=== PATIENT | female | born 1950 | race Caucasian/White ===

== ENCOUNTER 2017-03-18 13:32 | Inpatient (IN) | payer MEDICARE, BC ==
[2017-03-18] MEDS ORDERED: Sodium Chloride 0.9% 10 ML Syringe FLUSH PRN (15:34)
[2017-03-18] MEDS ORDERED: Ketorolac 30 MG/ML SDV IVPUSH ONE (15:34)
[2017-03-18] MEDS ORDERED: Sodium Chloride 0.9% 1,000 ML IV ONE ×2 (15:34→18:33)
[2017-03-18] MEDS ORDERED: Oseltamivir 75 MG Cap PO ONE (16:14)
[2017-03-18] MEDS ORDERED: Albuterol 0.083% 2.5 MG/3 ML Neb Soln NEB ONE (16:24)
[2017-03-18] MEDS ORDERED: Codeine/Promethazine 10-6.25 MG/5 ML Syrup 5 ML UD Cup PO STA (16:24)
--- NOTE | 2017-03-18 16:31 | EDM.PDOC ---
ED HPI GENERAL MEDICAL PROBLEM - General Chief Complaint: General Stated Complaint: SICK/NOT EATING Time Seen by Provider: 03/18/17 14:28 Source of Information: Reports: Patient History Limitations: Reports: No Limitations - History of Present Illness INITIAL COMMENTS - FREE TEXT/NARRATIVE: 67-year-old female presents for evaluation treatment of cough, chills, decreased appetite, headaches, body aches, fatigue and malaise. Reports that she has not been feeling well since Saturday. Started coughing on Saturday. It is a nonproductive cough but does have a wet sound to it. She questions that she has had any fevers. She's not taken her temperature. No abdominal pain, nausea, vomiting, diarrhea or sore throat. No urinary symptoms. Last bowel movement was Saturday. Patient did have a flu shot this season. 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 She sees a web interface developer in [place]. Duration: Day(s): (2) Headache Pain Score (Numeric/FACES): 4 - Related Data Allergies Allergy/AdvReac Type Severity Reaction Status Date / Time ragweed pollen Allergy Cough Verified 03/18/17 23:52 Home Meds: Home Meds atorvaSTATin [Lipitor] 40 mg PO BEDTIME 12/08/13 [History] guaiFENesin [Mucinex] 600 mg PO BID 12/08/13 [History] Esomeprazole Magnesium [Nexium 24Hr] 1 tab PO DAILY 03/18/17 [History] Sertraline [Zoloft] 50 mg PO DAILY 03/18/17 [History] Past Medical History - Past Surgical History HEENT Surgical History: Reports: Other (See Below) Other HEENT Surgeries/Procedures: numerous sinus surgeries;bronchoscopy Social & Family History - Tobacco Use Smoking Status *Q: Never Smoker - Caffeine Use Caffeine Use: Reports: Coffee - Alcohol Use Days Per Week of Alcohol Use: 0 - Recreational Drug Use Recreational Drug Use: No ED ROS GENERAL - Review of Systems Review Of Systems: See Below Constitutional: Reports: Chills, Malaise, Weakness, Fatigue, Decreased Appetite HEENT: Denies: Ear Pain, Throat Pain Respiratory: Reports: Cough GI/Abdominal: Denies: Abdominal Pain, Diarrhea, Nausea, Vomiting ED EXAM, GENERAL - Physical Exam Exam: See Below Exam Limited By: No Limitations General Appearance: Alert, WD/WN, Moderate Distress Ears: Normal External Exam Nose: Normal Inspection Throat/Mouth: Normal Inspection, Normal Lips, Normal Oropharynx, Normal Voice, No Airway Compromise Respiratory/Chest: No Respiratory Distress, Lungs Clear, Normal Breath Sounds Cardiovascular: Normal Peripheral Pulses, Regular Rate, Rhythm, No Murmur Neurological: Alert, Oriented, Normal Cognition Psychiatric: Normal Affect, Normal Mood Skin Exam: Warm, Dry, Normal Color Course - Vital Signs Last Recorded V/S: Last Vital Signs Temp 37.2 C 03/18/17 14:31 Pulse 98 03/18/17 14:31 Resp 20 03/18/17 14:31 BP 108/71 03/18/17 14:31 Pulse Ox 92 L 03/18/17 16:24 - Orders/Labs/Meds Orders: Active Orders 24 hr Category Date Time Status Admission Status [Patient Status] [ADT] Routine ADT 03/18/17 21:06 Active Oxygen Therapy [RC] ASDIRECTED Care 03/18/17 18:34 Active Peripheral IV Care [RC] Q2H Care 03/18/17 15:36 Active Chest 1V Frontal [CR] Stat Exams 03/18/17 15:34 Taken Sodium Chloride 0.9% [Normal Saline] 1,000 ml Med 03/18/17 18:33 Active IV ONETIME Sodium Chloride 0.9% [Saline Flush] Med 03/18/17 15:34 Active 10 ml FLUSH ASDIRECTED PRN Peripheral IV Insertion Adult [OM.PC] Routine Oth 03/18/17 15:34 Ordered Medication Orders Albuterol/Ipratropium (Duoneb 3.0-0.5 Mg/3 Ml) 3 ml NEB QIDRT DON Enoxaparin Sodium (Lovenox) 40 mg SUBCUT DAILY DON Hydralazine HCl (Apresoline) 20 mg IVPUSH Q6H PRN PRN Reason: Hypertension Sodium Chloride (Normal Saline) 1,000 mls @ 100 mls/hr IV ONETIME ONE Stop: 03/19/17 04:32 Last Admin: 03/18/17 18:37 Dose: 100 mls/hr Levofloxacin/Dextrose 750 mg/ (Premix) 150 mls @ 100 mls/hr IV ONETIME ONE Stop: 03/19/17 00:29 Last Admin: 03/18/17 23:37 Dose: 100 mls/hr Sodium Chloride (Normal Saline) 1,000 mls @ 70 mls/hr IV ASDIRECTED DON Oseltamivir Phosphate (Tamiflu) 75 mg PO BID DON Sodium Chloride (Saline Flush) 10 ml FLUSH ASDIRECTED PRN PRN Reason: Keep Vein Open Last Admin: 03/18/17 15:43 Dose: 10 ml Temazepam (Restoril) 7.5 mg PO BEDTIME PRN PRN Reason: Sleep Last Admin: 03/18/17 23:48 Dose: 7.5 mg Labs: Laboratory Tests 03/18/17 03/18/17 Range/Units 15:10 15:10 WBC 6.04 (3.98-10.04) K/mm3 RBC 5.02 (3.98-5.22) M/mm3 Hgb 13.7 (11.2-15.7) gm/L Hct 41.9 (34.1-44.9) % MCV 83.5 (79.4-94.8) fl MCH 27.3 (25.6-32.2) pg MCHC 32.7 (32.2-35.5) g/dl RDW Std Deviation 43.5 (36.4-46.3) fL Plt Count 264 (182-369) K/mm3 MPV 10.3 (9.4-12.3) fl Neutrophils % (Manual) 80 H (40-60) % Band Neutrophils % 0 (0-10) % Lymphocytes % (Manual) 7 L (20-40) % Atypical Lymphs % 0 % Monocytes % (Manual) 13 H (2-10) % Eosinophils % (Manual) 0 L (0.7-5.8) % Basophils % (Manual) 0 L (0.1-1.2) Platelet Estimate Adequate Plt Morphology Comment Normal RBC Morph Comment Normal Sodium 136 (136-145) mEq/L Potassium 3.7 (3.5-5.1) mEq/L Chloride 98 (98-107) mEq/L Carbon Dioxide 28 (21-32) mEq/L Anion Gap 13.7 (5-15) BUN 21 H (7-18) mg/dL Creatinine 1.0 (0.55-1.02) mg/dL Est Cr Clr Drug Dosing 43.92 mL/min Estimated GFR (MDRD) 55 (>60) mL/min BUN/Creatinine Ratio 21.0 H (14-18) Glucose 116 H (80-115) mg/dL Calcium 8.9 (8.5-10.1) mg/dL Total Bilirubin 0.4 (0.2-1.0) mg/dL AST 35 (15-37) U/L ALT 51 (14-59) U/L Alkaline Phosphatase 74 (46-116) U/L C-Reactive Protein 5.0 H* (<1.0) mg/dL Total Protein 7.8 (6.4-8.2) g/dl Albumin 3.6 (3.4-5.0) g/dl Globulin 4.2 gm/dL Albumin/Globulin Ratio 0.9 L (1-2) Meds: Medications Generic Name Dose Route Start Last Admin Trade Name Freq PRN Reason Stop Dose Admin Albuterol/Ipratropium 3 ml 03/19/17 06:00 Duoneb 3.0-0.5 Mg/3 Ml NEB QIDRT DON Enoxaparin Sodium 40 mg 03/19/17 09:00 Lovenox SUBCUT DAILY [facility] Hydralazine HCl 20 mg 03/18/17 22:54 Apresoline IVPUSH Q6H PRN Hypertension Sodium Chloride 1,000 mls @ 100 mls/hr 03/18/17 18:33 03/18/17 18:37 Normal Saline IV 03/19/17 04:32 100 mls/hr ONETIME ONE Administration Levofloxacin/Dextrose 750 mg/ 150 mls @ 100 mls/hr 03/18/17 23:00 03/18/17 23 :37 Premix IV 03/19/17 00:29 100 mls/hr ONETIME ONE Administration Sodium Chloride 1,000 mls @ 70 mls/hr 03/18/17 22:45 Normal Saline IV ASDIRECTED DON Oseltamivir Phosphate 75 mg 03/19/17 09:00 Tamiflu PO BID DON Sodium Chloride 10 ml 03/18/17 15:34 03/18/17 15:43 Saline Flush FLUSH 10 ml ASDIRECTED PRN Administration Keep Vein Open Temazepam 7.5 mg 03/18/17 22:50 03/18/17 23:48 Restoril PO 7.5 mg BEDTIME PRN Administration Sleep Discontinued Medications Generic Name Dose Route Start Last Admin Trade Name Freq PRN Reason Stop Dose Admin Albuterol 2.5 mg 03/18/17 16:24 03/18/17 16:57 Proventil Neb Soln NEB 03/18/17 16:25 2.5 mg ONETIME ONE Administration Sodium Chloride 1,000 mls @ 999 mls/hr 03/18/17 15:34 03/18/17 15:41 Normal Saline IV 03/18/17 16:34 999 mls/hr ONETIME ONE Administration Ketorolac Tromethamine 30 mg 03/18/17 15:34 03/18/17 15:41 Toradol IVPUSH 03/18/17 15:35 30 mg ONETIME ONE Administration Oseltamivir Phosphate 75 mg 03/18/17 16:14 03/18/17 16:31 Tamiflu PO 03/18/17 16:15 75 mg ONETIME ONE Administration Promethazine HCl/Codeine 5 ml 03/18/17 16:24 03/18/17 16:31 Phenergan With Codeine PO 03/18/17 16:25 5 ml NOW STA Administration - Radiology Interpretation Free Text/Narrative:: Chest: Frontal view of the chest was obtained. Comparison: Prior chest x-ray of 12/08/13. Heart size and mediastinum are normal. Lungs are clear. Bony structures show old no discrete abnormality. Impression: 1. Nothing acute is appreciated on frontal chest x-ray. - Re-Assessments/Exams Free Text/Narrative Re-Assessment/Exam: 03/18/17 16:43 Influenza return positive for type A. I feel that she needs to be admitted to the hospital given her history of bronchial and tracheal malacia. Will discuss with Dr. Schmitt and plan on admission. 03/18/17 20:14 Nursing staff informed me that her oxygen sats have been in the upper 80s to low 90s on room air. She has been placed on supplemental oxygen. Case discussed with Dr. Schmitt, hospitalist on-call. She will come and see the patient in the ER. Plan on admission. 03/18/17 22:01 Dr. Schmitt has seen the patient in the ER. She'll be admitted to the floor. Departure - Departure Time of Disposition: 22:00 Disposition: Admitted As Inpatient 64 Condition: Poor Clinical Impression: Influenza A, Hypoxia - Discharge Information - My Orders Last 24 Hours: My Active Orders 03/18/17 15:34 Chest 1V Frontal [CR] Stat Sodium Chloride 0.9% [Saline Flush] 10 ml FLUSH ASDIRECTED PRN Peripheral IV Insertion Adult [OM.PC] Routine 03/18/17 15:36 Peripheral IV Care [RC] Q2H 03/18/17 18:33 Sodium Chloride 0.9% [Normal Saline] 1,000 ml IV ONETIME 03/18/17 18:34 Oxygen Therapy [RC] ASDIRECTED 03/18/17 21:06 Admission Status [Patient Status] [ADT] Routine - Assessment/Plan Last 24 Hours: My Active Orders 03/18/17 15:34 Chest 1V Frontal [CR] Stat Sodium Chloride 0.9% [Saline Flush] 10 ml FLUSH ASDIRECTED PRN Peripheral IV Insertion Adult [OM.PC] Routine 03/18/17 15:36 Peripheral IV Care [RC] Q2H 03/18/17 18:33 Sodium Chloride 0.9% [Normal Saline] 1,000 ml IV ONETIME 03/18/17 18:34 Oxygen Therapy [RC] ASDIRECTED 03/18/17 21:06 Admission Status [Patient Status] [ADT] Routine
[2017-03-18] MEDS ORDERED: hydrALAZINE 20 MG/ML SDV IVPUSH PRN (22:54)
[2017-03-18] MEDS ORDERED: Levofloxacin/Dextrose 5%-Water 750 MG in Premix Bag 1 BAG IV ONE (23:00)
[2017-03-18] MEDS: Temazepam 7.5 MG Cap PO PRN (23:48)
[2017-03-19] MEDS ORDERED: Acetaminophen 325 MG Tab PO PRN (01:59)
[2017-03-19] MEDS ORDERED: Magnesium Hydroxide 400 MG/5 ML Susp 30 ML Cup PO ONE (04:21)
[2017-03-19] MEDS: Sodium Chloride 0.9% 1,000 ML IV SCH ×2 (06:11→21:05)
[2017-03-19] MEDS: Albuterol/Ipratropium 3.0-0.5 MG/3 ML Neb Soln NEB SCH ×4 (06:19→21:30)
--- NOTE | 2017-03-19 08:01 | CR ---
Chest: Frontal view of the chest was obtained. Comparison: Prior chest x-ray of 12/08/13. Heart size and mediastinum are normal. Lungs are clear. Bony structures show no discrete abnormality. Impression: 1. Nothing acute is appreciated on frontal chest x-ray. Diagnostic code #1
[2017-03-19] MEDS: Oseltamivir 30 MG Cap PO SCH ×2 (08:49→21:01)
[2017-03-19] MEDS: Enoxaparin 40 MG/0.4 ML Syringe SUBCUT SCH (08:50)
--- NOTE | 2017-03-19 09:26 | PCM.HP ---
H&P History of Present Illness - General Date of Service: 03/19/17 Admit Problem/Dx: Influenza A, hypoxia, weakness "Rabia" is seen this morning resting in bed. She feels very weak. She reports she had to force herself to eat some cereal this morning and she has no appetite. She is very achy body wide, reports a headache and coughing which is nonproductive. She has a flat affect this morning, answering questions but does not elaborate on anything else. Reports she did not sleep well last night as she was uncomfortable and achy. Denies complaints of chest pain or shortness of breath. No pleuritic chest pain with coughing. No nausea vomiting diarrhea, no fevers chills sweats. Source of Information: Patient, Other (ED notes) History Limitations: Reports: No Limitations - History of Present Illness Onset of Symptoms: Reports: Gradual Symptom Onset Date: 03/16/17 Duration of Symptoms: Reports: Day(s): (4), Getting Worse Location: Reports: Chest, Generalized Quality: Reports: Ache Improves with: Reports: None Worsens with: Reports: None Associated Symptoms: Reports: Cough, cough w sputum, Fever/Chills, Headaches, Loss of Appetite, Malaise, Weakness. Denies: Chest Pain, Nausea/Vomiting, Rash , Seizure, Shortness of Breath, Syncope Headache Pain Score (Numeric/FACES): 4 - Related Data Allergies/Adverse Reactions: Allergies Allergy/AdvReac Type Severity Reaction Status Date / Time No Known Allergies Allergy Verified 03/19/17 02:50 Home Medications: Home Meds atorvaSTATin [Lipitor] 40 mg PO BEDTIME 12/08/13 [History] guaiFENesin [Mucinex] 600 mg PO BID 12/08/13 [History] Esomeprazole Magnesium [Nexium 24Hr] 1 tab PO DAILY 03/18/17 [History] Sertraline [Zoloft] 50 mg PO DAILY 03/18/17 [History] Past Medical History - Infectious Disease History Infectious Disease History: Reports: Influenza, Other (See Below) Other Infectious Disease History: pt unsure of what she has had - Past Surgical History HEENT Surgical History: Reports: Other (See Below) Other HEENT Surgeries/Procedures: numerous sinus surgeries;bronchoscopy Social & Family History - Family History Family Medical History: Noncontributory - Tobacco Use Smoking Status *Q: Never Smoker Used Tobacco, but Quit: No Second Hand Smoke Exposure: No - Caffeine Use Caffeine Use: Reports: Coffee Other Caffeine Use: coffee 4 cups a day - Alcohol Use Days Per Week of Alcohol Use: 0 - Recreational Drug Use Recreational Drug Use: No H&P Review of Systems - Review of Systems: Review Of Systems: See Below General: Reports: Fever (at home/subjective), Chills, Malaise, Weakness, Fatigue , Decreased Appetite HEENT: Reports: Headaches, Post Nasal Drip, Sore Throat Pulmonary: Reports: Cough. Denies: Shortness of Breath, Wheezing, Pleuritic Chest Pain Cardiovascular: Reports: No Symptoms. Denies: Chest Pain, Palpitations Gastrointestinal: Reports: No Symptoms. Denies: Abdominal Pain, Diarrhea, Nausea, Vomiting Genitourinary: Reports: No Symptoms Musculoskeletal: Reports: Other (generalized myalgias) Psychiatric: Reports: No Symptoms Neurological: Reports: No Symptoms Exam - Exam Exam: See Below - Vital Signs Vital Signs: Last Vital Signs Temp 97.3 F 03/19/17 04:27 Pulse 78 03/19/17 04:27 Resp 16 03/19/17 04:27 BP 109/72 03/19/17 04:27 Pulse Ox 91 L 03/19/17 09:12 Weight: 145 lb 1.6 oz - Exam Quality Assessment: Supplemental Oxygen, DVT Prophylaxis General: Alert, Oriented, Cooperative HEENT: Conjunctiva Clear, EOMI, Hearing Intact, Mucosa Moist & [place], Pupils Equal Neck: Supple Lungs: Normal Respiratory Effort, Decreased Breath Sounds, Other (no adventitous sounds noted) Cardiovascular: Regular Rate, Regular Rhythm, Normal S1, Normal S2 GI/Abdominal Exam: Normal Bowel Sounds, Soft, Non-Tender (Female) Exam: Deferred Rectal (Female) Exam: Deferred Back Exam: Normal Inspection Extremities: Normal Inspection, No Pedal Edema, Normal Capillary Refill Peripheral Pulses: 2+: Dorsalis Pedis (L), Dorsalis Pedis (R) Skin: Warm, Dry Neurological: Cranial Nerves Intact Neuro Extensive - Mental Status: Alert, Oriented x3, Normal Mood/Affect, Normal Cognition, Memory Intact Neuro Extensive - Motor, Sensory, Reflexes: CN II-XII Intact Psychiatric: Alert, Other (flat affect, tearful when talking about achiness and myalgias) - Patient Data Lab Results Last 24 hrs: Laboratory Results - last 24 hr 03/19/17 03/19/17 Range/Units 05:05 05:43 WBC 3.69 L (3.98-10.04) K/mm3 RBC 4.13 (3.98-5.22) M/mm3 Hgb 11.5 (11.2-15.7) gm/L Hct 35.0 (34.1-44.9) % MCV 84.7 (79.4-94.8) fl MCH 27.8 (25.6-32.2) pg MCHC 32.9 (32.2-35.5) g/dl RDW Std Deviation 44.0 (36.4-46.3) fL Plt Count 215 (182-369) K/mm3 MPV 10.3 (9.4-12.3) fl Neut % (Auto) 55.0 (34.0-71.1) % Lymph % (Auto) 25.2 (19.3-51.7) % [place] % (Auto) 19.2 H (4.7-12.5) % Eos % (Auto) 0 L (0.7-5.8) Baso % (Auto) 0.3 (0.1-1.2) % Neut # (Auto) 2.03 (1.56-6.13) K/mm3 Lymph # (Auto) 0.93 L (1.18-3.74) K/mm3 [place] # (Auto) 0.71 H (0.24-0.36) K/mm3 Eos # (Auto) 0.00 L (0.04-0.36) K/mm3 Baso # (Auto) 0.01 (0.01-0.08) K/mm3 Manual Slide Review Abnormal smear Sodium 140 (136-145) mEq/L Potassium 3.7 (3.5-5.1) mEq/L Chloride 105 (98-107) mEq/L Carbon Dioxide 26 (21-32) mEq/L Anion Gap 12.7 (5-15) BUN 18 (7-18) mg/dL Creatinine 0.8 (0.55-1.02) mg/dL Est Cr Clr Drug Dosing 54.90 mL/min Estimated GFR (MDRD) > 60 (>60) mL/min BUN/Creatinine Ratio 22.5 H (14-18) Glucose 103 (80-115) mg/dL Calcium 8.0 L (8.5-10.1) mg/dL Magnesium 1.9 (1.8-2.4) mg/dl C-Reactive Protein 2.3 H* (<1.0) mg/dL Mycoplasma pneumon IgM Negative (NEGATIVE) Result Diagrams: 03/19/17 05:43 03/19/17 05:05 *Q Meaningful Use (ADM) - VTE *Q VTE Criteria *Q: - Stroke *Q Stroke Criteria *Q: - AMI *Q AMI Criteria *Q: - Problem List (1) Influenza A SNOMED Code(s): 056571397 ICD Code: J10.1 - FLU DUE TO OTH IDENT INFLUENZA VIRUS W OTH RESP MANIFEST Status: Acute Priority: High Current Visit: Yes (2) Hypoxia SNOMED Code(s): 431556912 ICD Code: R09.02 - HYPOXEMIA Status: Acute Priority: High Current Visit : Yes (3) History of tracheomalacia SNOMED Code(s): 816641409 ICD Code: Z87.09 - PERSONAL HISTORY OF OTHER DISEASES OF THE RESPIRATORY SYSTEM Status: Chronic Priority: Medium Current Visit: Yes Problem List Initiated/Reviewed/Updated: Yes Orders Last 24hrs: Active Orders 24 hr Category Date Time Status Activity as Tolerated [RC] .Routine Care 03/18/17 22:42 Active CPAP Adult [RT BiPAP/CPAP] [RC] ASDIRECTED Care 03/18/17 23:00 Active RT Aerosol Therapy [RC] ASDIRECTED Care 03/18/17 22:41 Active Consult to Pulmonary Rehabilitation [CONS] Routine Cons 03/19/17 08:00 Active Heart Healthy Diet [DIET] Diet 03/19/17 Breakfast Active CULTURE BLOOD [BC] Stat Lab 03/18/17 22:55 Received CULTURE BLOOD [BC] Stat Lab 03/18/17 23:05 Received RESPIRATORY PANEL BY PCR [MREF] Routine Lab 03/18/17 23:40 Received STREP PNEUMONIAE ANTIGEN [MREF] Routine Lab 03/18/17 23:40 Received Acetaminophen [Tylenol] Med 03/19/17 01:59 Active 650 mg PO Q4H PRN Albuterol/Ipratropium [DuoNeb 3.0-0.5 MG/3 ML] Med 03/19/17 06:00 Active 3 ml NEB QIDRT Enoxaparin [Lovenox] Med 03/19/17 09:00 Active 40 mg SUBCUT DAILY Esomeprazole Magnesium [Nexium 24Hr] Med 03/19/17 09:30 Ordered 1 tab PO DAILY Oseltamivir [Tamiflu] Med 03/19/17 09:00 Active 30 mg PO BID Sertraline [Zoloft] Med 03/19/17 09:30 Ordered 50 mg PO DAILY Sodium Chloride 0.9% [Normal Saline] 1,000 ml Med 03/18/17 22:45 Active IV ASDIRECTED Temazepam [Restoril] Med 03/18/17 22:50 Active 7.5 mg PO BEDTIME PRN atorvaSTATin Med 03/19/17 21:00 Ordered 40 mg PO BEDTIME guaiFENesin [Mucinex] Med 03/19/17 21:00 Ordered 600 mg PO BID hydrALAZINE [Apresoline] Med 03/18/17 22:54 Active 20 mg IVPUSH Q6H PRN Blood Culture x2 Reflex Set [OM.PC] Stat Oth 03/18/17 22:39 Ordered Isolation [COMM] Routine Oth 03/18/17 23:00 Ordered Code Status [Resuscitation Status] Routine Resus Stat 03/18/17 23:33 Ordered Medication Orders Acetaminophen (Tylenol) 650 mg PO Q4H PRN PRN Reason: Pain Last Admin: 03/19/17 02:13 Dose: 650 mg Albuterol/Ipratropium (Duoneb 3.0-0.5 Mg/3 Ml) 3 ml NEB QIDRT [facility] Last Admin: 03/19/17 09:12 Dose: 3 ml Admin: 03/19/17 06:19 Dose: 3 ml Enoxaparin Sodium (Lovenox) 40 mg SUBCUT DAILY [facility] Last Admin: 03/19/17 08:50 Dose: 40 mg Guaifenesin (Mucinex) 600 mg PO BID [facility] Hydralazine HCl (Apresoline) 20 mg IVPUSH Q6H PRN PRN Reason: Hypertension Sodium Chloride (Normal Saline) 1,000 mls @ 70 mls/hr IV ASDIRECTED [facility] Last Admin: 03/19/17 06:11 Dose: 70 mls/hr Non-Formulary Medication (Atorvastatin) 40 mg PO BEDTIME [facility] Non-Formulary Medication (Esomeprazole Magnesium [Nexium 24hr]) 1 tab PO DAILY DON Oseltamivir Phosphate (Tamiflu) 30 mg PO BID DON Stop: 03/23/17 21:01 Last Admin: 03/19/17 08:49 Dose: 30 mg Sertraline HCl (Zoloft) 50 mg PO DAILY DON Sodium Chloride (Saline Flush) 10 ml FLUSH ASDIRECTED PRN PRN Reason: Keep Vein Open Last Admin: 03/18/17 15:43 Dose: 10 ml Temazepam (Restoril) 7.5 mg PO BEDTIME PRN PRN Reason: Sleep Last Admin: 03/18/17 23:48 Dose: 7.5 mg Assessment/Plan Comment:: I/P: Influenza A + -Tamiflu BID; renal dosing -RT/Nebs/IS/FV -IV fluids -antipyretics PRN, motrin scheduled for myalgias -Supportive care -Repeat CXR this morning Hypoxia- etiology above -Supplemental oxygen to keep sats >90% -Tx influenza as above -Mycoplasma negative, awaiting s.pneumo antigen, Resp viral panel and blood cultures Hx of tracheomalacia -now with + influenza A -Levaquin IV -Follows with Pulmonology in [place] Hx of CELIA -Home CPAP -Supplemental oxygen PRN--may be contributing to hypoxia Other: PT/OT--generalized weakness, ? need for SNF for rehab stay, will see how she progresses over the next 24-48 hours. GI/DVT prophylax Follow up with Pulmonology after discharge Patient is Full Code status. PCP is Dr. Keys with [facility] in [place].
[2017-03-19] MEDS: Pantoprazole 40 MG Tab.CR PO SCH (10:24)
[2017-03-19] MEDS: Sertraline 50 MG Tab PO SCH (10:24)
[2017-03-19] MEDS: Ketorolac 30 MG/ML SDV IVPUSH SCH ×3 (11:55→22:59)
[2017-03-19] MEDS: Acetaminophen 325 MG Tab PO SCH ×3 (11:57→22:55)
[2017-03-19] MEDS: Codeine/Promethazine 10-6.25 MG/5 ML Syrup 5 ML UD Cup PO PRN ×2 (11:58→18:18)
[2017-03-19] MEDS: Rosuvastatin 10 MG Tab PO SCH (20:59)
[2017-03-19] MEDS: guaiFENesin 600 MG Tab.ER PO SCH (21:00)
[2017-03-19] MEDS: Montelukast 10 MG Tab PO SCH (21:00)
[2017-03-19] MEDS: Levofloxacin/Dextrose 5%-Water 750 MG in Premix Bag 1 BAG IV SCH (22:56)
[2017-03-20] MEDS: Acetaminophen 325 MG Tab PO SCH ×4 (05:35→23:28)
[2017-03-20] MEDS: Ketorolac 30 MG/ML SDV IVPUSH SCH (05:37)
[2017-03-20] MEDS: Benzocaine/Cetylpyridinium/Menthol Lozenge MUCMEM PRN ×3 (05:37→12:18)
[2017-03-20] MEDS: Albuterol/Ipratropium 3.0-0.5 MG/3 ML Neb Soln NEB SCH ×4 (06:30→21:46)
[2017-03-20] MEDS ORDERED: methylPREDNISolone Sodium Succinate 40 MG/1 ML SDV IVPUSH ONE (07:27)
--- NOTE | 2017-03-20 07:33 | PCM.PN ---
- General Info Date of Service: 03/20/17 Admission Dx/Problem (Free Text): Influenza A, hypoxia, weakness "Rabia" is seen this morning resting in bed. She continues to feel very weak. She has sore throat and ear pain this morning. She is eating but forcing herself. Denies complaints of chest pain or shortness of breath. No pleuritic chest pain with coughing. No nausea vomiting diarrhea, no fevers chills sweats. Functional Status: Reports: Pain Controlled, Tolerating Diet, Ambulating, Urinating, Incentive Spirometry. Denies: New Symptoms - Review of Systems General: Reports: Weakness, Fatigue, Malaise, Chills. Denies: Fever HEENT: Reports: Ear Pain, Headaches, Sore Throat, Rhinitis Pulmonary: Reports: Cough. Denies: Pleuritic Chest Pain, Sputum Cardiovascular: Reports: No Symptoms Gastrointestinal: Reports: No Symptoms. Denies: Abdominal Pain, Diarrhea, Nausea, Vomiting Genitourinary: Reports: No Symptoms Musculoskeletal: Reports: Other (generalized myalgias) Neurological: Reports: No Symptoms Psychiatric: Reports: No Symptoms - Patient Data Vitals - Most Recent: Last Vital Signs Temp 98.2 F 03/20/17 04:04 Pulse 67 03/20/17 04:04 Resp 18 03/20/17 04:04 BP 99/63 03/20/17 04:04 Pulse Ox 93 L 03/20/17 06:31 Weight - Most Recent: 145 lb 6.4 oz I&O - Last 24 Hours: Intake & Output 03/19/17 03/20/17 03/20/17 22:59 06:59 14:59 Intake Total 1054 1030 Output Total 1150 900 Balance -96 130 Lab Results Last 24 Hours: Laboratory Results - last 24 hr 03/19/17 Range/Units 05:43 Manual Slide Review Abnormal smear Dusty Results Last 24 Hours: Microbiology 03/18/17 23:05 Aerobic Blood Culture - Preliminary Blood - Venous NO GROWTH AFTER 1 DAY Anaerobic Blood Culture - Preliminary NO GROWTH AFTER 1 DAY 03/18/17 22:55 Aerobic Blood Culture - Preliminary Blood - Venous - Lab Draw NO GROWTH AFTER 1 DAY Anaerobic Blood Culture - Preliminary NO GROWTH AFTER 1 DAY 03/18/17 23:40 Streptococcus pneumoniae Antigen (M - Final Urine - Unspecified Med Orders - Current: Current Medications Acetaminophen (Tylenol) 650 mg PO Q4H PRN PRN Reason: Pain Last Admin: 03/19/17 02:13 Dose: 650 mg Acetaminophen (Tylenol) 650 mg PO Q6H [facility] Last Admin: 03/20/17 05:35 Dose: 650 mg Albuterol/Ipratropium (Duoneb 3.0-0.5 Mg/3 Ml) 3 ml NEB QIDRT [facility] Last Admin: 03/20/17 06:30 Dose: 3 ml Benzocaine/Menthol (Cepacol Sore Throat) 1 lozenge MUCMEM Q2HR PRN PRN Reason: Sore Throat Last Admin: 03/20/17 05:37 Dose: 1 lozenge Enoxaparin Sodium (Lovenox) 40 mg SUBCUT DAILY [facility] Last Admin: 03/19/17 08:50 Dose: 40 mg Guaifenesin (Mucinex) 600 mg PO BID [facility] Last Admin: 03/19/17 21:00 Dose: 600 mg Hydralazine HCl (Apresoline) 20 mg IVPUSH Q6H PRN PRN Reason: Hypertension Sodium Chloride (Normal Saline) 1,000 mls @ 70 mls/hr IV ASDIRECTED [facility] Last Admin: 03/19/17 21:05 Dose: 70 mls/hr Levofloxacin/Dextrose 750 mg/ (Premix) 150 mls @ 100 mls/hr IV Q24H [facility] Last Admin: 03/19/17 22:56 Dose: 100 mls/hr Methylprednisolone Sodium Succinate (Solu-Medrol) 80 mg IVPUSH ONETIME ONE Stop: 03/20/17 07:28 Montelukast Sodium (Singulair) 10 mg PO BEDTIME [facility] Last Admin: 03/19/17 21:00 Dose: 10 mg Oseltamivir Phosphate (Tamiflu) 30 mg PO BID [facility] Stop: 03/23/17 21:01 Last Admin: 03/19/17 21:01 Dose: 30 mg Pantoprazole Sodium (Protonix) 40 mg PO DAILY [facility] Last Admin: 03/19/17 10:24 Dose: 40 mg Promethazine HCl/Codeine (Phenergan With Codeine) 5 ml PO Q6HR PRN PRN Reason: Cough Last Admin: 03/19/17 18:18 Dose: 5 ml Rosuvastatin Calcium (Crestor) 10 mg PO BEDTIME [facility] Last Admin: 03/19/17 20:59 Dose: 10 mg Sertraline HCl (Zoloft) 50 mg PO DAILY [facility] Last Admin: 03/19/17 10:24 Dose: 50 mg Sodium Chloride (Saline Flush) 10 ml FLUSH ASDIRECTED PRN PRN Reason: Keep Vein Open Last Admin: 03/18/17 15:43 Dose: 10 ml Temazepam (Restoril) 7.5 mg PO BEDTIME PRN PRN Reason: Sleep Last Admin: 03/18/17 23:48 Dose: 7.5 mg Discontinued Medications Albuterol (Proventil Neb Soln) 2.5 mg NEB ONETIME ONE Stop: 03/18/17 16:25 Last Admin: 03/18/17 16:57 Dose: 2.5 mg Sodium Chloride (Normal Saline) 1,000 mls @ 999 mls/hr IV ONETIME ONE Stop: 03/18/17 16:34 Last Admin: 03/18/17 15:41 Dose: 999 mls/hr Sodium Chloride (Normal Saline) 1,000 mls @ 100 mls/hr IV ONETIME ONE Stop: 03/19/17 04:32 Last Admin: 03/18/17 18:37 Dose: 100 mls/hr Levofloxacin/Dextrose 750 mg/ (Premix) 150 mls @ 100 mls/hr IV ONETIME ONE Stop: 03/19/17 00:29 Last Admin: 03/18/17 23:37 Dose: 100 mls/hr Ketorolac Tromethamine (Toradol) 30 mg IVPUSH ONETIME ONE Stop: 03/18/17 15:35 Last Admin: 03/18/17 15:41 Dose: 30 mg Ketorolac Tromethamine (Toradol) 30 mg IVPUSH Q6H [facility] Stop: 03/20/17 05:01 Last Admin: 03/20/17 05:37 Dose: 30 mg Magnesium Hydroxide (Milk Of Magnesia) 30 ml PO ONETIME ONE Stop: 03/19/17 04:22 Last Admin: 03/19/17 04:41 Dose: 30 ml Oseltamivir Phosphate (Tamiflu) 75 mg PO ONETIME ONE Stop: 03/18/17 16:15 Last Admin: 03/18/17 16:31 Dose: 75 mg Promethazine HCl/Codeine (Phenergan With Codeine) 5 ml PO NOW STA Stop: 03/18/17 16:25 Last Admin: 03/18/17 16:31 Dose: 5 ml - Exam Quality Assessment: Supplemental Oxygen, DVT Prophylaxis General: Alert, Oriented, Cooperative, No Acute Distress, Other (very tired and weak) HEENT: Pupils Equal, EOMI, Mucous Membr. Moist/[place] Neck: Supple Lungs: Clear to Auscultation, Normal Respiratory Effort, Decreased Breath Sounds (mid to lower lobes) Cardiovascular: Regular Rate, Regular Rhythm GI/Abdominal Exam: Normal Bowel Sounds, Soft, Non-Tender (Female) Exam: Deferred Extremities: No Pedal Edema, Normal Capillary Refill Peripheral Pulses: 2+: Dorsalis Pedis (L), Dorsalis Pedis (R) Skin: Warm, Dry, Intact Neurological: No New Focal Deficit Psy/Mental Status: Alert, Other (flat affect) - Problem List & Annotations (1) Influenza A SNOMED Code(s): 978928574 Code(s): J10.1 - FLU DUE TO OTH IDENT INFLUENZA VIRUS W OTH RESP MANIFEST Status: Acute Priority: High Current Visit: Yes (2) Hypoxia SNOMED Code(s): 586270082 Code(s): R09.02 - HYPOXEMIA Status: Resolved Priority: High Current Visit: Yes (3) History of tracheomalacia SNOMED Code(s): 916498022 Code(s): Z87.09 - PERSONAL HISTORY OF OTHER DISEASES OF THE RESPIRATORY SYSTEM Status: Chronic Priority: Medium Current Visit: Yes - Problem List Review Problem List Initiated/Reviewed/Updated: Yes - My Orders Last 24 Hours: My Active Orders 03/19/17 09:30 Pantoprazole [ProTONIX] 40 mg PO DAILY Sertraline [Zoloft] 50 mg PO DAILY 03/19/17 11:00 Acetaminophen [Tylenol] 650 mg PO Q6H 03/19/17 11:01 RT Incentive Spirometry [RC] Q2HWA Codeine/Promethazine [Phenergan with Codeine] 5 ml PO Q6HR PRN RT Flutter Valve Therapy [RT Acapella] [RESPCARE] Routine 03/19/17 21:00 Rosuvastatin [Crestor] 10 mg PO BEDTIME guaiFENesin [Mucinex] 600 mg PO BID 03/20/17 07:26 Chest 2V [CR] Routine BASIC METABOLIC PANEL,BMP [CHEM] Routine C-REACTIVE PROTEIN [CHEM] Routine CBC WITH AUTO DIFF [HEME] Routine MAGNESIUM [CHEM] Routine 03/20/17 07:27 methylPREDNISolone Sod Succ [Solu-MEDROL] 80 mg IVPUSH ONETIME ONE - Plan Plan:: I/P: Influenza A + -Tamiflu BID; renal dosing -RT/Nebs/IS/FV -IV fluids -antipyretics PRN, motrin scheduled for myalgias -Supportive care -Repeat CXR today Hypoxia- etiology above---Resolved; RA now -Supplemental oxygen to keep sats >90% -Tx influenza as above -Mycoplasma negative, awaiting s.pneumo antigen, Resp viral panel and blood cultures Hx of tracheomalacia -now with + influenza A -Levaquin IV -Follows with Pulmonology in [place] Hx of CELIA -Home CPAP -Supplemental oxygen PRN--may be contributing to hypoxia Other: PT/OT--generalized weakness, ? need for SNF for rehab stay, will see how she progresses over the next 24-48 hours. Plan DC in 1-2 days. GI/DVT prophylax Follow up with Pulmonology after discharge Patient is Full Code status. PCP is Dr. Keys with [facility] in [place].
[2017-03-20] MEDS: Codeine/Promethazine 10-6.25 MG/5 ML Syrup 5 ML UD Cup PO PRN ×2 (09:04→17:43)
[2017-03-20] MEDS: guaiFENesin 600 MG Tab.ER PO SCH ×2 (09:04→20:32)
[2017-03-20] MEDS: Sertraline 50 MG Tab PO SCH (09:04)
[2017-03-20] MEDS: Pantoprazole 40 MG Tab.CR PO SCH (09:04)
[2017-03-20] MEDS: Enoxaparin 40 MG/0.4 ML Syringe SUBCUT SCH (09:04)
[2017-03-20] MEDS: Oseltamivir 30 MG Cap PO SCH ×2 (09:04→20:30)
--- NOTE | 2017-03-20 09:14 | CR ---
Chest: Two views of the chest were obtained. Comparison: Prior chest x-ray of 03/18/17. Heart size and mediastinum are normal. Lungs are clear. Surgical clips are seen from prior cholecystectomy. Minimal scoliosis is noted within the spine. Diaphragms are flattened on the lateral view raising the possibility of emphysematous change. Impression: 1. Possible emphysematous change. Please correlate if patient is a smoker. 2. Other incidental findings. Nothing acute is identified. Diagnostic code #2
[2017-03-20] MEDS: Sodium Chloride 0.9% 1,000 ML IV SCH (11:43)
[2017-03-20] MEDS ORDERED: Magnesium Hydroxide 400 MG/5 ML Susp 30 ML Cup PO ONE (11:51)
[2017-03-20] MEDS: Pseudoephedrine 30 MG Tab PO PRN ×2 (13:05→20:33)
--- NOTE | 2017-03-20 15:51 | PCM.SN ---
- Free Text/Narrative Note: Patient seen this afternoon; looks much better; states she feels much better this afternoon. Ear pain improved to resolved with sudafed. ST also better. Energy is returning. Cough is much improved. Generalized myalgias improved with tylenol. Overall patient looks 50-75% better than when I saw her yesterday morning. Likely DC home tomorrow.
[2017-03-20] MEDS ORDERED: Polyethylene Glycol 3350 Powder 17 GM Packet PO ONE (16:41)
[2017-03-20] MEDS: Rosuvastatin 10 MG Tab PO SCH (20:33)
[2017-03-20] MEDS: Montelukast 10 MG Tab PO SCH (20:33)
[2017-03-20] MEDS: Levofloxacin/Dextrose 5%-Water 750 MG in Premix Bag 1 BAG IV SCH (23:35)
[2017-03-21] MEDS: Temazepam 7.5 MG Cap PO PRN (01:42)
[2017-03-21] MEDS: Sodium Chloride 0.9% 1,000 ML IV SCH (01:44)
[2017-03-21] MEDS: Acetaminophen 325 MG Tab PO SCH ×2 (05:42→11:51)
[2017-03-21] MEDS: Albuterol/Ipratropium 3.0-0.5 MG/3 ML Neb Soln NEB SCH (06:38)
[2017-03-21] MEDS: guaiFENesin 600 MG Tab.ER PO SCH (08:22)
[2017-03-21] MEDS: Enoxaparin 40 MG/0.4 ML Syringe SUBCUT SCH (08:22)
[2017-03-21] MEDS: Sertraline 50 MG Tab PO SCH (08:22)
[2017-03-21] MEDS: Oseltamivir 30 MG Cap PO SCH (08:22)
[2017-03-21] MEDS: Pantoprazole 40 MG Tab.CR PO SCH (08:22)
--- NOTE | 2017-03-21 09:27 | PCM.DCSUM1 ---
Discharge Summary - Hospital Course Free Text/Narrative:: 67-year-old female presents for evaluation treatment of cough, chills, decreased appetite, headaches, body aches, fatigue and malaise. Reports that she has not been feeling well since Saturday. Started coughing on Saturday. It is a nonproductive cough but does have a wet sound to it. She questions that she has had any fevers. She's not taken her temperature. No abdominal pain, nausea, vomiting, diarrhea or sore throat. No urinary symptoms. Last bowel movement was Saturday. Patient did have a flu shot this season. 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 She sees a certified master safecracker in [place]. ED evaluation reveals + influenza A with hypoxia. Hospitalist service is asked to admit for influenza A. Patient is Full code status PCP is Dr. Alley Keys with [facility] - Discharge Data Discharge Date: 03/21/17 (admit date 03/18/17) Discharge Disposition: Home, Self-Care 01 Condition: Good - Discharge Diagnosis/Problem(s) (1) Influenza A SNOMED Code(s): 065320093 ICD Code: J10.1 - FLU DUE TO OTH IDENT INFLUENZA VIRUS W OTH RESP MANIFEST Status: Acute Priority: High Current Visit: Yes (2) Hypoxia SNOMED Code(s): 333070798 ICD Code: R09.02 - HYPOXEMIA Status: Resolved Priority: High Current Visit: Yes (3) History of tracheomalacia SNOMED Code(s): 202256961 ICD Code: Z87.09 - PERSONAL HISTORY OF OTHER DISEASES OF THE RESPIRATORY SYSTEM Status: Chronic Priority: Medium Current Visit: Yes - Patient Summary/Data Operative Procedure(s) Performed: None Complications: None Consults: Consultations 03/19/17 08:00 Consult to Pulmonary Rehabilitation [CONS] Routine Labs Pending at D/C: None Recommended Follow-up Testing/Procedures: Follow up with PCP within one week of discharge Follow up with Pulmonology as scheduled Cough syrup and sudafed as needed Planned Operative Procedure(s) after DC: None Hospital Course: I/P: Influenza A + -Tamiflu BID; renal dosing -RT/Nebs/IS/FV -IV fluids -antipyretics PRN, motrin scheduled for myalgias -Supportive care -Repeat CXR today Hypoxia- etiology above---Resolved; RA now -Supplemental oxygen to keep sats >90% -Tx influenza as above -Mycoplasma negative, awaiting s.pneumo antigen, Resp viral panel and blood cultures Hx of tracheomalacia -now with + influenza A -Levaquin IV -Follows with Pulmonology in [place] Hx of CELIA -Home CPAP -Supplemental oxygen PRN--may be contributing to hypoxia Other: PT/OT--generalized weakness, ? need for SNF for rehab stay, will see how she progresses over the next 24-48 hours. Plan DC in 1-2 days. GI/DVT prophylax Follow up with Pulmonology after discharge Patient is Full Code status. PCP is Dr. Keys with [facility] in [place]. - Patient Instructions Diet: Usual Diet as Tolerated, Drink 8-10+ Glasses/Day Activity: As Tolerated Showering/Bathing: May Shower Notify Provider of: Fever, Increased Pain, Nausea and/or Vomiting (worsening cough, shortness of breath) - Discharge Plan Prescriptions/Med Rec: Codeine/Promethazine [Phenergan with Codeine] 5 ml PO Q6HR PRN #120 ml PRN Reason: Cough Levofloxacin [Levaquin] 500 mg PO DAILY #7 tablet Oseltamivir [Tamiflu] 30 mg PO BID #4 cap Pseudoephedrine [Sudogest] 30 mg PO Q6H PRN #20 tablet PRN Reason: Congestion Home Medications: Home Meds atorvaSTATin [Lipitor] 40 mg PO BEDTIME 12/08/13 [History] guaiFENesin [Mucinex] 600 mg PO BID 12/08/13 [History] Esomeprazole Magnesium [Nexium 24Hr] 1 tab PO DAILY 03/18/17 [History] Sertraline [Zoloft] 50 mg PO DAILY 03/18/17 [History] Montelukast [Singulair] 10 mg PO BEDTIME 03/19/17 [History] Acetaminophen [Tylenol] 650 mg PO Q4H PRN tablet 03/21/17 [Rx] Codeine/Promethazine [Phenergan with Codeine] 5 ml PO Q6HR PRN #120 ml 03/21/17 [Rx] Levofloxacin [Levaquin] 500 mg PO DAILY #7 tablet 03/21/17 [Rx] Oseltamivir [Tamiflu] 30 mg PO BID #4 cap 03/21/17 [Rx] Pseudoephedrine [Sudogest] 30 mg PO Q6H PRN #20 tablet 03/21/17 [Rx] Patient Handouts: Influenza, Adult, [id number], Hypoxemia Forms: ED Department Discharge Referrals: Gilma Keys MD [Primary Care Provider] - Miki Goldstein MD [Ordering Only Provider] - 06/18/17 2:00 pm (This is pt's certified master safecracker in [facility] - Discharge Summary/Plan Comment DC Time >30 min.: Yes (40 min) - General Info Date of Service: 03/21/17 Admission Dx/Problem (Free Text: Influenza A, hypoxia, weakness "Rabia" is seen this morning resting in bed. She is talking with Spiritual Care but states feels "so much better today". Slept well last night. Minimal achiness /myalgias today. Cough is much better. VSS/afebrile. She is anxious for DC home today. Functional Status: Reports: Pain Controlled, Tolerating Diet, Ambulating, Urinating, Incentive Spirometry. Denies: New Symptoms - Review of Systems General: Reports: Weakness (significantly improved), Fatigue HEENT: Reports: Ear Pain (improved to resolved), Headaches (resolved), Sore Throat (improved to resolved) Pulmonary: Reports: Cough (significant improvement). Denies: Shortness of Breath, Sputum, Wheezing Cardiovascular: Reports: No Symptoms. Denies: Chest Pain, Palpitations, Dyspnea on Exertion Gastrointestinal: Reports: No Symptoms. Denies: Abdominal Pain, Diarrhea, Nausea, Vomiting Genitourinary: Reports: No Symptoms Musculoskeletal: Reports: No Symptoms Skin: Reports: No Symptoms Neurological: Reports: No Symptoms Psychiatric: Reports: No Symptoms - Patient Data Vitals - Most Recent: Last Vital Signs Temp 98.2 F 03/21/17 07:41 Pulse 76 03/21/17 07:41 Resp 18 03/21/17 07:41 BP 107/69 03/21/17 07:41 Pulse Ox 96 03/21/17 07:41 Weight - Most Recent: 142 lb 14.4 oz I&O - Last 24 hours: Intake & Output 03/20/17 03/21/17 03/21/17 22:59 06:59 14:59 Intake Total 1640 1570 Output Total 3200 1600 Balance -1560 -30 Lab Results - Last 24 hrs: Laboratory Results - last 24 hr 03/20/17 03/20/17 Range/Units 10:29 10:29 WBC 4.73 (3.98-10.04) K/mm3 RBC 4.27 (3.98-5.22) M/mm3 Hgb 11.6 (11.2-15.7) gm/L Hct 36.0 (34.1-44.9) % MCV 84.3 (79.4-94.8) fl MCH 27.2 (25.6-32.2) pg MCHC 32.2 (32.2-35.5) g/dl RDW Std Deviation 43.8 (36.4-46.3) fL Plt Count 233 (182-369) K/mm3 MPV 9.8 (9.4-12.3) fl Neut % (Auto) 72.8 H (34.0-71.1) % Lymph % (Auto) 20.3 (19.3-51.7) % [place] % (Auto) 6.3 (4.7-12.5) % Eos % (Auto) 0.2 L (0.7-5.8) Baso % (Auto) 0.4 (0.1-1.2) % Neut # (Auto) 3.44 (1.56-6.13) K/mm3 Lymph # (Auto) 0.96 L (1.18-3.74) K/mm3 [place] # (Auto) 0.30 (0.24-0.36) K/mm3 Eos # (Auto) 0.01 L (0.04-0.36) K/mm3 Baso # (Auto) 0.02 (0.01-0.08) K/mm3 Sodium 142 (136-145) mEq/L Potassium 3.5 (3.5-5.1) mEq/L Chloride 108 H (98-107) mEq/L Carbon Dioxide 22 (21-32) mEq/L Anion Gap 15.5 H (5-15) BUN 11 (7-18) mg/dL Creatinine 1.0 (0.55-1.02) mg/dL Est Cr Clr Drug Dosing 43.92 mL/min Estimated GFR (MDRD) 55 (>60) mL/min BUN/Creatinine Ratio 11.0 L (14-18) Glucose 152 H (80-115) mg/dL Calcium 8.0 L (8.5-10.1) mg/dL Magnesium 2.1 (1.8-2.4) mg/dl C-Reactive Protein 0.5 (<1.0) mg/dL ISABELLA Results - Last 24 hrs: Microbiology 03/18/17 23:05 Aerobic Blood Culture - Preliminary Blood - Venous NO GROWTH AFTER 2 DAYS Anaerobic Blood Culture - Preliminary NO GROWTH AFTER 2 DAYS 03/18/17 22:55 Aerobic Blood Culture - Preliminary Blood - Venous - Lab Draw NO GROWTH AFTER 2 DAYS Anaerobic Blood Culture - Preliminary NO GROWTH AFTER 2 DAYS 03/18/17 23:40 Respiratory Virus Panel (PCR) (ISABELLA) - Final Nasopharyngeal Swab Med Orders - Current: Current Medications Acetaminophen (Tylenol) 650 mg PO Q4H PRN PRN Reason: Pain Last Admin: 03/19/17 02:13 Dose: 650 mg Acetaminophen (Tylenol) 650 mg PO Q6H [facility] Last Admin: 03/21/17 05:42 Dose: 650 mg Albuterol/Ipratropium (Duoneb 3.0-0.5 Mg/3 Ml) 3 ml NEB QIDRT [facility] Last Admin: 03/21/17 06:38 Dose: 3 ml Benzocaine/Menthol (Cepacol Sore Throat) 1 lozenge MUCMEM Q2HR PRN PRN Reason: Sore Throat Last Admin: 03/20/17 12:18 Dose: 1 lozenge Enoxaparin Sodium (Lovenox) 40 mg SUBCUT DAILY [facility] Last Admin: 03/21/17 08:22 Dose: 40 mg Guaifenesin (Mucinex) 600 mg PO BID [facility] Last Admin: 03/21/17 08:22 Dose: 600 mg Hydralazine HCl (Apresoline) 20 mg IVPUSH Q6H PRN PRN Reason: Hypertension Sodium Chloride (Normal Saline) 1,000 mls @ 70 mls/hr IV ASDIRECTED [facility] Last Admin: 03/21/17 01:44 Dose: 70 mls/hr Levofloxacin/Dextrose 750 mg/ (Premix) 150 mls @ 100 mls/hr IV Q24H [facility] Stop: 03/21/17 23:01 Last Admin: 03/20/17 23:35 Dose: 100 mls/hr Montelukast Sodium (Singulair) 10 mg PO BEDTIME [facility] Last Admin: 03/20/17 20:33 Dose: 10 mg Oseltamivir Phosphate (Tamiflu) 30 mg PO BID [facility] Stop: 03/23/17 21:01 Last Admin: 03/21/17 08:22 Dose: 30 mg Pantoprazole Sodium (Protonix) 40 mg PO DAILY [facility] Last Admin: 03/21/17 08:22 Dose: 40 mg Promethazine HCl/Codeine (Phenergan With Codeine) 5 ml PO Q6HR PRN PRN Reason: Cough Last Admin: 03/20/17 17:43 Dose: 5 ml Pseudoephedrine HCl (Sudogest) 30 mg PO Q6H PRN PRN Reason: Congestion Last Admin: 03/20/17 20:33 Dose: 30 mg Rosuvastatin Calcium (Crestor) 10 mg PO BEDTIME [facility] Last Admin: 03/20/17 20:33 Dose: 10 mg Sertraline HCl (Zoloft) 50 mg PO DAILY [facility] Last Admin: 03/21/17 08:22 Dose: 50 mg Sodium Chloride (Saline Flush) 10 ml FLUSH ASDIRECTED PRN PRN Reason: Keep Vein Open Last Admin: 03/18/17 15:43 Dose: 10 ml Temazepam (Restoril) 7.5 mg PO BEDTIME PRN PRN Reason: Sleep Last Admin: 03/21/17 01:42 Dose: 7.5 mg Discontinued Medications Albuterol (Proventil Neb Soln) 2.5 mg NEB ONETIME ONE Stop: 03/18/17 16:25 Last Admin: 03/18/17 16:57 Dose: 2.5 mg Sodium Chloride (Normal Saline) 1,000 mls @ 999 mls/hr IV ONETIME ONE Stop: 03/18/17 16:34 Last Admin: 03/18/17 15:41 Dose: 999 mls/hr Sodium Chloride (Normal Saline) 1,000 mls @ 100 mls/hr IV ONETIME ONE Stop: 03/19/17 04:32 Last Admin: 03/18/17 18:37 Dose: 100 mls/hr Levofloxacin/Dextrose 750 mg/ (Premix) 150 mls @ 100 mls/hr IV ONETIME ONE Stop: 03/19/17 00:29 Last Admin: 03/18/17 23:37 Dose: 100 mls/hr Ketorolac Tromethamine (Toradol) 30 mg IVPUSH ONETIME ONE Stop: 03/18/17 15:35 Last Admin: 03/18/17 15:41 Dose: 30 mg Ketorolac Tromethamine (Toradol) 30 mg IVPUSH Q6H [facility] Stop: 03/20/17 05:01 Last Admin: 03/20/17 05:37 Dose: 30 mg Magnesium Hydroxide (Milk Of Magnesia) 30 ml PO ONETIME ONE Stop: 03/19/17 04:22 Last Admin: 03/19/17 04:41 Dose: 30 ml Magnesium Hydroxide (Milk Of Magnesia) 30 ml PO ONETIME ONE Stop: 03/20/17 11:52 Last Admin: 03/20/17 12:18 Dose: 30 ml Methylprednisolone Sodium Succinate (Solu-Medrol) 80 mg IVPUSH ONETIME ONE Stop: 03/20/17 07:28 Last Admin: 03/20/17 09:02 Dose: 80 mg Oseltamivir Phosphate (Tamiflu) 75 mg PO ONETIME ONE Stop: 03/18/17 16:15 Last Admin: 03/18/17 16:31 Dose: 75 mg Polyethylene Glycol (Miralax) 17 gm PO ONETIME ONE Stop: 03/20/17 16:42 Last Admin: 03/20/17 18:45 Dose: Not Given Promethazine HCl/Codeine (Phenergan With Codeine) 5 ml PO NOW STA Stop: 03/18/17 16:25 Last Admin: 03/18/17 16:31 Dose: 5 ml - Exam Quality Assessment: Reports: DVT Prophylaxis General: Reports: Alert, Oriented, Cooperative, No Acute Distress, Other (looks much better, much more talkative, positive and smiling today) HEENT: Reports: Pupils Equal, EOMI, Mucous Membr. Moist/[place] Neck: Reports: Supple Lungs: Reports: Clear to Auscultation, Normal Respiratory Effort Cardiovascular: Reports: Regular Rate, Regular Rhythm GI/Abdominal Exam: Normal Bowel Sounds, Soft, Non-Tender (Female) Exam: Deferred Rectal (Female) Exam: Deferred Extremities: Normal Inspection, No Pedal Edema, Normal Capillary Refill Neurological: Reports: No New Focal Deficit Psy/Mental Status: Reports: Alert, Normal Affect, Normal Mood *Q Meaningful Use (DIS) - VTE *Q VTE Criteria *Q: - Stroke *Q Stroke Criteria *Q: - AMI *Q AMI Criteria *Q:
== END 2017-03-21 13:20 | disposition home or self-care (01) | DRG 195 ==
LOC: JD.ED 13:32 → JD.MS 21:07
PROVIDERS: ADMIT Internal Medicine Cardiovascular Disease; ATTEND Internal Medicine Cardiovascular Disease
DX: J10.1 Influenza due to other identified influenza virus with other respiratory manifestations (principal); R09.02 Hypoxemia; J39.8 Other specified diseases of upper respiratory tract; Z91.048 Other nonmedicinal substance allergy status; R53.1 Weakness; H92.09 Otalgia, unspecified ear; G47.33 Obstructive sleep apnea (adult) (pediatric); Z79.899 Other long term (current) drug therapy; Z87.09 Personal history of other diseases of the respiratory system
CPT/HCPCS: 36415; 71045; 80053; 85025; 86140; 87804 ×2; 94640; 96361; 96374; 99285; A9270 ×2; J1885; J7040 ×2; J7050; 71046; 71046-26; 80048; 83735; 86738; 87040; 87486; 87581; 87633; 87798; 87899; 94667; 94761; 99284; J1650; J1956; J2920

== ENCOUNTER 2017-11-22 07:57 | Day surgery (SDC) | payer MEDICARE, BC ==
[~2017-11-22 07:57] MED LIST: Lactated Ringers 1,000 ML IV SCH; Lidocaine 1%/Sod Bicarbonate in NS 8.4% 1 ML Syringe IDERM PRN; Sodium Chloride 0.9% 10 ML Syringe FLUSH PRN
--- NOTE | 2017-11-22 08:43 | PCM.PREANE ---
Preanesthetic Assessment - Procedure Proposed Procedure: egd with biopsy - Anesthesia/Transfusion/Family Hx Anesthesia History: Prior Anesthesia Without Reaction Family History of Anesthesia Reaction: No Transfusion History: No Prior Transfusion(s) - Review of Systems General: No Symptoms Pulmonary: No Symptoms Cardiovascular: No Symptoms Gastrointestinal: No Symptoms Neurological: No Symptoms Other: Reports: Anxiety - Physical Assessment NPO Status Date: 11/21/17 NPO Status Time: 21:00 Pulse: 76 O2 Sat by Pulse Oximetry: 96 Respiratory Rate: 16 Blood Pressure: 135/74 Temperature: 98.8 F Height: 5 ft 3 in Weight: 72 kg ASA Class: 2 Mental Status: Alert & Oriented x3 Airway Class: Mallampati = 1 Dentition: Reports: Normal Dentition, Bridge Thyro-Mental Finger Breadths: 3 Mouth Opening Finger Breadths: 3 ROM/Head Extension: Full Lungs: Clear to Auscultation, Normal Respiratory Effort Cardiovascular: Regular Rate, Regular Rhythm - Allergies Allergies/Adverse Reactions: Allergies Allergy/AdvReac Type Severity Reaction Status Date / Time No Known Allergies Allergy Verified 11/21/17 10:45 - Blood Blood Available: No - Acknowledgements Anesthesia Type Planned: MAC Pt an Appropriate Candidate for the Planned Anesthesia: Yes Alternatives and Risks of Anesthesia Discussed w Pt/Guardian: Yes Pt/Guardian Understands and Agrees with Anesthesia Plan: Yes PreAnesthesia Questionnaire HEENT History: Reports: Cataract, Impaired Vision, Sinusitis Cardiovascular History: Reports: High Cholesterol, Other (See Below) Other Cardiovascular History: chest pain, heart cath Respiratory History: Reports: Asthma, Sleep Apnea, Other (See Below) Other Respiratory History: airway hyperactivity, cough, tracheobroncheomalacia, bronchoscopy Gastrointestinal History: Reports: Colon Polyp, Diverticulosis, GERD Genitourinary History: Reports: None PICKING SUPERVISOR History: Reports: None Musculoskeletal History: Reports: Osteoarthritis, Other (See Below) Other Musculoskeletal History: left knee pain, left upper extremity fracture, right shoulder arthroscopy Neurological History: Reports: None Psychiatric History: Reports: Anxiety, Depression Endocrine/Metabolic History: Reports: Other (See Below) Other Endocrine/Metabolic History: thyroid nodules Hematologic History: Reports: None Immunologic History: Reports: None Oncologic (Cancer) History: Reports: None Dermatologic History: Reports: None - Infectious Disease History Infectious Disease History: Reports: Influenza, Other (See Below) Other Infectious Disease History: pt unsure of what she has had - Past Surgical History Head Surgeries/Procedures: Reports: None HEENT Surgical History: Reports: Naso-Sinus Surgery, Other (See Below) Other HEENT Surgeries/Procedures: numerous sinus surgeries;bronchoscopy Cardiovascular Surgical History: Reports: None Respiratory Surgical History: Reports: None GI Surgical History: Reports: Cholecystectomy, Colonoscopy, EGD Female Surgical History: Reports: Section Male Surgical History: Reports: None Endocrine Surgical History: Reports: None Neurological Surgical History: Reports: None Musculoskeletal Surgical History: Reports: None Oncologic Surgical History: Reports: None Dermatological Surgical History: Reports: None - SUBSTANCE USE Smoking Status *Q: Never Smoker Tobacco Use Within Last Twelve Months: No Second Hand Smoke Exposure: No Days Per Week of Alcohol Use: 0 Recreational Drug Use History: No - HOME MEDS Home Medications: Home Meds atorvaSTATin [Lipitor] 40 mg PO BEDTIME 12/08/13 [History] guaiFENesin [Mucinex] 600 mg PO BID 12/08/13 [History] Esomeprazole Magnesium [Nexium 24Hr] 1 tab PO DAILY 03/18/17 [History] Montelukast [Singulair] 10 mg PO BEDTIME 03/19/17 [History] Aspirin [Adult Aspirin] 81 mg PO DAILY 11/21/17 [History] Budesonide/Formoterol [Symbicort 160-4.5 MCG] 2 puff INH BID 11/21/17 [History] Calcium Citrate/Vitamin D3 [Citracal + D Maximum Caplet] 1 tab PO DAILY [History] Collagen, Hydrolysate (Bovine) [Collagen Hydrolysate] 1 dose PO DAILY 11/21/17 [ History] Multivitamin [Daily Multiple Vitamin] 1 tab PO DAILY 11/21/17 [History] Ubidecarenone [Coq-10] 200 mg PO DAILY 11/21/17 [History] - CURRENT (IN HOUSE) MEDS Current Meds: Current Medications Lactated Ringer's (Ringers, Lactated) 1,000 mls @ 125 mls/hr IV ASDIRECTED DON Stop: 11/22/17 23:00 Lidocaine/Sodium Bicarbonate (Buffered Lidocaine 1% In Ns 8.4%) 0.25 ml IDERM ONETIME PRN PRN Reason: Prior to IV Start Stop: 11/22/17 18:00 Sodium Chloride (Saline Flush) 10 ml FLUSH ASDIRECTED PRN PRN Reason: Keep Vein Open Stop: 11/22/17 18:00
[2017-11-22] MEDS ORDERED: fentaNYL 100 MCG/2 ML SDV ONE (09:15)
[2017-11-22] MEDS ORDERED: Propofol 200 MG/20 ML SDV ONE (09:15)
[2017-11-22] MEDS ORDERED: Lidocaine 1% 4 ML ONE (09:16)
--- NOTE | 2017-11-22 10:01 | PCM.OPNOTE ---
- General Post-Op/Procedure Note Date of Surgery/Procedure: 11/22/17 Operative Procedure(s): EGD with biopsy Findings: Hiatal hernia and gastric polyps Pre Op Diagnosis: dysphagia Post-Op Diagnosis: dysphagia Anesthesia Technique: MAC Primary Surgeon: Evelyn Mathis Anesthesia Provider: Areli Reyna Pathology: 1. Gastric polyp x2 2. Antrum mucosa biopsy Complications: none apparent Condition: Good
--- NOTE | 2017-11-22 10:07 | PCM48HPAN ---
Post Anesthesia Note - EVALUATION WITHIN 48HRS OF ANESTHETIC Vital Signs in Normal Range: Yes Patient Participated in Evaluation: Yes Respiratory Function Stable: Yes Airway Patent: Yes Cardiovascular Function Stable: Yes Hydration Status Stable: Yes Pain Control Satisfactory: Yes Nausea and Vomiting Control Satisfactory: Yes Mental Status Recovered: Yes Pulse Rate: 69 SaO2: 98 Resp Rate: 16 Temperature: 36.8 C Blood Pressure: 119/67
--- NOTE | 2017-11-22 11:35 | PCM.PRNOTE ---
- Free Text/Narrative Note: Operative Report Date of procedure: November 22, 2017 Preoperative diagnosis: dysphagia Postoperative diagnosis: same Surgeon: Evelyn Mathis M.D. Procedure: EGD with biopsy Anesthesia: MAC Anesthesiologist: Malik Isbell CRNA IV fluids: See anesthesia report Estimated blood loss: 2 mL Specimens: 1. Greature curvature polyp x2 2. Gastric antrum mucosa for H. Pylori Indication: The patient is a 67 -year-old lady who presented with pharyngeal dysphagia/ globus sensation. The patient is still able to eat and drink normally. She also has a persistent, bothersome dry cough. The patient underwent a preoperative esophagram for evaluation of stricture, motility disorder or extrinsic compression. The patient was consented for an EGD with possible intervention. Risk of bleeding and perforation were discussed. The patient's consent was obtained Description of the procedure: The patient was taken to the endoscopy suite and placed on hemodynamic monitoring. A timeout was performed. The nurse surveillance sensor officer connected the patient to her CPAP machine, a bite block was placed, and the patient was positioned in the left lateral decubitus position. The nurse surveillance sensor officer induced MAC anesthesia. The endoscope was gently placed into the mouth to the back of the pharynx and introduced into the esophagus. The scope was gently advanced under direct visualization down to the level of the lower esophageal sphincter. The Z line was noted at 38 cm from the mouth. A small hiatal hernia was seen, approximately 1-2cm with smooth, regular borders of gastric mucosa. The stomach was then entered. Normal rugal folds were noted. There were multiple 1-3mm polyps noted in the body of the stomach, 2 were removed with cold biopsy forceps. The scope was advanced into the antrum. We noted no abnormalities. The gastric antrum mucosa was biopsied for H. pylori. The pylorus was then entered and the first and second portion of the duodenum was inspected. There were no ulcerations or other abnormalities in the visualized duodenum. The scope was then retroflexed in the cardia and fundus were investigated. No other abnormalities were noted. The scope was then withdrawn while inspecting the esophagus. There was no esophagitis. The procedure was terminated. the patient tolerated the procedure well without any evidence of complications. Instructions: The patient will return home and may resume usual diet as tolerated. She will be maintained on her normal acid suppression medication. Plan for return to my office in 2 weeks for discussion of pathology. Complications: None apparent. Disposition: Stable to PACU Evelyn Mathis MD General Surgery
== END 2017-11-22 11:45 | disposition home or self-care (01) ==
LOC: JD.SDS 07:57
PROVIDERS: ATTEND Surgery
DX: K29.50 Unspecified chronic gastritis without bleeding (principal); K31.7 Polyp of stomach and duodenum; K44.9 Diaphragmatic hernia without obstruction or gangrene; E78.5 Hyperlipidemia, unspecified; E78.00 Pure hypercholesterolemia, unspecified; M19.90 Unspecified osteoarthritis, unspecified site; K21.9 Gastro-esophageal reflux disease without esophagitis; F32.9 Major depressive disorder, single episode, unspecified; F41.9 Anxiety disorder, unspecified; G47.33 Obstructive sleep apnea (adult) (pediatric); Z99.89 Dependence on other enabling machines and devices; Z79.899 Other long term (current) drug therapy; Z87.891 Personal history of nicotine dependence
CPT/HCPCS: 43239; J2704; J3010; J7120; 00731; J2001

== ENCOUNTER 2021-02-14 20:10 | Emergency (ER) | payer MEDICARE, BC ==
[2021-02-14] MEDS ORDERED: Alum Hydrox/Mag Hydrox/Simeth 30 ML, Lidocaine 2% 15 ML PO STA ×2 (20:26)
--- NOTE | 2021-02-14 20:28 | EDM.PDOC ---
ED HPI GENERAL MEDICAL PROBLEM - General Chief Complaint: Chest Pain Stated Complaint: HEART ISSUES Time Seen by Provider: 02/14/21 20:21 Source of Information: Reports: Patient, Family () History Limitations: Reports: Other (The patient is behaving mellow dramatically and not paying much attention to my questions) - History of Present Illness INITIAL COMMENTS - FREE TEXT/NARRATIVE: Mrs. Miranda is a pleasant 71-year-old woman who now presents to the ED stating that she developed sudden-onset anterior chest, upper abdomen, and whole back pain around 19:00, while she was sitting. She is unable to describe the character of the pain, but states emphatically that it is a pain, not a discomfort. She has not identified any modifiers. She states that she has had some nausea, on and off. She is unsure if she feels dyspneic, but states that she does feel diaphoretic. No associated sense of impending doom. She has not taken any [id number]-[id number] or home remedies since the onset of her symptoms, however, she states that underwent a tooth extraction this morning, and subsequently took 3 Aleve around 15:00 and 1 Tylenol with codeine around 18:00. The patient states that she has had similar symptoms in the past, although not as severe. Here in the ED, the patient is found to be slightly bradycardic at 58 bpm, otherwise, she is hemodynamically stable, afebrile, saturating 100% on room air. She is keeping her eyes closed, but is in no acute distress. The patient states that she suffers from occasional constipation, and that she had some nausea and vomiting last week. Otherwise, prior to tonight, the patient denies having a recent fever, chills, sore throat, ear pain, nasal or sinus congestion, cough, dyspnea, chest pain, palpitations, diarrhea, abdominal pain, urinary symptoms, recent weight gain or weight loss, recent bloody bowel movements or black bowel movements, recent joint aches, headaches, or rashes. The patient's PCP is Dr. Gilma Keys. Her Refractory Tile Helper is Dr. Miki Goldstein. Her neurology midlevel is Ana Herrera NP. She has received her COVID vaccinations as well as an influenza vaccination this season. Chest Pain Score (Numeric/FACES): 10 - Related Data Allergies Allergy/AdvReac Type Severity Reaction Status Date / Time No Known Allergies Allergy Verified 02/14/21 20:19 Home Meds: Home Meds atorvaSTATin [Lipitor] 40 mg PO BEDTIME 12/08/13 [History] guaiFENesin [Mucinex] 600 mg PO BID 12/08/13 [History] Esomeprazole Magnesium [Nexium 24Hr] 20 mg PO DAILY 03/18/17 [History] Montelukast [Singulair] 10 mg PO BEDTIME 03/19/17 [History] Aspirin [Adult Aspirin] 81 mg PO DAILY 11/21/17 [History] Budesonide/Formoterol [Symbicort 160-4.5 MCG] 2 puff INH BID 11/21/17 [History] Calcium Citrate/Vitamin D3 [Citracal + D Maximum Caplet] 1 tab PO DAILY 11/21/17 [History] Collagen, Hydrolysate (Bovine) [Collagen Hydrolysate] 1 dose PO DAILY 11/21/17 [History] Multivitamin [Daily Multiple Vitamin] 1 tab PO DAILY 11/21/17 [History] Ubidecarenone [Coq-10] 200 mg PO DAILY 11/21/17 [History] Past Medical History HEENT History: Reports: Impaired Vision Cardiovascular History: Reports: High Cholesterol Respiratory History: Reports: Sleep Apnea (nightly CPAP 14), Other (See Below) (Tracheobronchomalacia) Gastrointestinal History: Reports: Colon Polyp, Diverticulosis (diverticulitis), GERD Musculoskeletal History: Reports: Fracture (left arm), Osteoarthritis Neurological History: Reports: Neuropathy, Peripheral Psychiatric History: Reports: Anxiety, Depression Endocrine/Metabolic History: Reports: Multinodular Thyroid - Infectious Disease History Infectious Disease History: Reports: Influenza - Past Surgical History HEENT Surgical History: Reports: Naso-Sinus Surgery Respiratory Surgical History: Reports: Other (See Below) (Bronchoscopies) GI Surgical History: Reports: Cholecystectomy (2004), Colonoscopy, EGD Female Surgical History: Reports: Section (x 4) Musculoskeletal Surgical History: Reports: Arthroscopic Procedure (right shoulder) Social & Family History - Tobacco Use Tobacco Use Status *Q: Never Tobacco User - Caffeine Use Caffeine Use: Reports: Coffee Other Caffeine Use: coffee 4 cups a day - Alcohol Use Alcohol Use History: Yes Alcohol Use Frequency: Rarely - Recreational Drug Use Recreational Drug Use: No - Living Situation & Occupation Living situation: Reports: , with Spouse Occupation: Retired ED ROS GENERAL - Review of Systems Review Of Systems: Comprehensive ROS is negative, except as noted in HPI. ED EXAM, GENERAL - Physical Exam Exam: See Below Exam Limited By: No Limitations General Appearance: Alert, WD/WN, Other (somewhat lethargic) Eye Exam: Bilateral Eye: EOMI, Normal Inspection Ears: Normal External Exam, Hearing Grossly Normal Nose: Normal Inspection Throat/Mouth: Normal Inspection, Normal Lips, Normal Voice, No Airway Compromise Head: Atraumatic, Normocephalic Neck: Normal Inspection, Full Range of Motion Respiratory/Chest: No Respiratory Distress, Lungs Clear, Normal Breath Sounds, No Accessory Muscle Use, Chest Non-Tender Cardiovascular: Normal Peripheral Pulses, Regular Rate, Rhythm, No Edema, No Gallop, No JVD, No Murmur, No Rub Peripheral Pulses: 3+: Radial (L), Radial (R) GI/Abdominal: Normal Bowel Sounds, Soft, No Organomegaly, No Distention, No Abnormal Bruit, No Mass, Tender (Mild, epigastric only. Nontender elsewhere.) Back Exam: Normal Inspection, Full Range of Motion, NT Extremities: Normal Inspection, Normal Range of Motion, No Pedal Edema, Normal Capillary Refill Neurological: Oriented, No Motor/Sensory Deficits, Slow to Respond, Other (Somewhat lethargic) Psychiatric: Other (Unable to determine) Skin Exam: Warm, Dry, Intact, Normal Color, No Rash #1 Interpretation EKG Date: 02/14/21 Time: 20:16 Rhythm: Other (Sinus bradycardia) Rate (Beats/Min): 54 [place]: Normal P-Wave: Present QRS: Normal ST-T: Normal QT: Normal Comparison: NA - No Prior EKG Course - Vital Signs Last Recorded V/S: Last Vital Signs Temp 37.1 C 02/14/21 20:19 Pulse 62 02/14/21 21:21 Resp 18 02/14/21 21:21 BP 122/64 02/14/21 21:21 Pulse Ox 98 02/14/21 21:21 - Orders/Labs/Meds Labs: Laboratory Tests 02/14/21 02/14/21 02/14/21 Range/Units 20:20 20:20 20:20 WBC 9.30 (3.98-10.04) K/mm3 RBC 4.81 (3.98-5.22) M/mm3 Hgb 13.1 D (11.2-15.7) gm/dl Hct 39.8 (34.1-44.9) % MCV 82.7 (79.4-94.8) fl MCH 27.2 (25.6-32.2) pg MCHC 32.9 (32.2-35.5) g/dl RDW Std Deviation 45.5 (36.4-46.3) fL Plt Count 210 (182-369) K/mm3 MPV 10.9 (9.4-12.3) fl Neutrophils % (Manual) 59 (40-60) % Band Neutrophils % 0 (0-10) % Lymphocytes % (Manual) 33 (20-40) % Atypical Lymphs % 0 % Monocytes % (Manual) 6 (2-10) % Eosinophils % (Manual) 2 (0.7-5.8) % Basophils % (Manual) 0 L (0.1-1.2) Platelet Estimate Adequate Plt Morphology Comment Normal RBC Morph Comment Normal PT 10.4 (9.7-12.0) SECONDS INR 0.93 APTT 21.9 (21.7-31.4) SECONDS D-Dimer, Quantitative 0.33 (0.19-0.50) mg/L Sodium 146 H (136-145) mEq/L Potassium 3.7 (3.5-5.1) mEq/L Chloride 106 (98-107) mEq/L Carbon Dioxide 31 (21-32) mEq/L Anion Gap 12.7 (5-15) BUN 26 H (7-18) mg/dL Creatinine 0.9 (0.55-1.02) mg/dL Est Cr Clr Drug Dosing TNP Estimated GFR (MDRD) > 60 (>60) mL/min BUN/Creatinine Ratio 28.9 H (14-18) Glucose 108 H (70-99) mg/dL Calcium 9.1 (8.5-10.1) mg/dL Magnesium 2.0 (1.8-2.4) mg/dL Total Bilirubin 0.4 (0.2-1.0) mg/dL AST 49 H (15-37) U/L ALT 46 (14-59) U/L Alkaline Phosphatase 86 (46-116) U/L Troponin I < 0.017 (0.00-0.056) ng/mL NT-Pro-B Natriuret Pep (0-125) pg/mL Total Protein 6.8 (6.4-8.2) g/dl Albumin 3.8 (3.4-5.0) g/dl Globulin 3.0 gm/dL Albumin/Globulin Ratio 1.3 (1-2) SARS-CoV-2 RNA (CALEB) (NEGATIVE) 02/14/21 02/14/21 Range/Units 20:20 20:20 WBC (3.98-10.04) K/mm3 RBC (3.98-5.22) M/mm3 Hgb (11.2-15.7) gm/dl Hct (34.1-44.9) % MCV (79.4-94.8) fl MCH (25.6-32.2) pg MCHC (32.2-35.5) g/dl RDW Std Deviation (36.4-46.3) fL Plt Count (182-369) K/mm3 MPV (9.4-12.3) fl Neutrophils % (Manual) (40-60) % Band Neutrophils % (0-10) % Lymphocytes % (Manual) (20-40) % Atypical Lymphs % % Monocytes % (Manual) (2-10) % Eosinophils % (Manual) (0.7-5.8) % Basophils % (Manual) (0.1-1.2) Platelet Estimate Plt Morphology Comment RBC Morph Comment PT (9.7-12.0) SECONDS INR APTT (21.7-31.4) SECONDS D-Dimer, Quantitative (0.19-0.50) mg/L Sodium (136-145) mEq/L Potassium (3.5-5.1) mEq/L Chloride (98-107) mEq/L Carbon Dioxide (21-32) mEq/L Anion Gap (5-15) BUN (7-18) mg/dL Creatinine (0.55-1.02) mg/dL Est Cr Clr Drug Dosing Estimated GFR (MDRD) (>60) mL/min BUN/Creatinine Ratio (14-18) Glucose (70-99) mg/dL Calcium (8.5-10.1) mg/dL Magnesium (1.8-2.4) mg/dL Total Bilirubin (0.2-1.0) mg/dL AST (15-37) U/L ALT (14-59) U/L Alkaline Phosphatase (46-116) U/L Troponin I (0.00-0.056) ng/mL NT-Pro-B Natriuret Pep 78 (0-125) pg/mL Total Protein (6.4-8.2) g/dl Albumin (3.4-5.0) g/dl Globulin gm/dL Albumin/Globulin Ratio (1-2) SARS-CoV-2 RNA (CALEB) Negative (NEGATIVE) Meds: Medications Discontinued Medications Generic Name Dose Route Start Last Admin Trade Name Freq PRN Reason Stop Dose Admin Al Hydroxide/Mg Hydroxide 30 ml 02/14/21 22:17 02/14/21 22:32 Aluminum Hydroxide/Magnesium Hydroxide/Simethicone Susp 30 Ml Cup PO 22:18 30 ml ONETIME ONE Administration Al Hydroxide/Mg Hydroxide 30 0 ml 02/14/21 20:26 02/14/21 20:35 ml/ Lidocaine HCl 15 ml PO 02/14/21 20:27 45 ml ONETIME STA Administration Famotidine 40 mg 02/14/21 21:06 02/14/21 21:15 Famotidine 20 Mg/2 Ml Sdv IVPUSH 02/14/21 21:07 40 mg ONETIME STA Administration - Re-Assessments/Exams Free Text/Narrative Re-Assessment/Exam: 02/14/21 20:27 An ECG, obtained at triage, shows no ischemic changes. Not have a history of coronary disease, but does have a history of GERD, for which she takes omeprazole every morning, including this morning. I suspect that her symptoms are due to GERD, therefore I ordered a GI cocktail, but, in the meantime, I also ordered a work-up that includes several blood tests, a swab for the SARS-CoV-2 virus, and a portable chest x-ray. 02/14/21 21:06 The patient reports significant improvement, although not complete resolution, of her pain, following the GI cocktail. I have therefore ordered 40 mg of IV famotidine. 02/14/21 22:13 Two-view chest radiograph appears to be grossly normal. The cardiac silhouette is within normal limits. No pulmonary vascular congestion. No pleural effusions. No focal infiltrate. No pneumothorax. Mild thoracolumbar scoliosis noted. Formal read per the Radiologist pending. The patient's CBC is unremarkable. Her CMP is remarkable for slight hyponatremia of 146, and a BUN slightly elevated at 26, with a Cr normal at 0.9, and slight hyperglycemia at 108, with the remainder of her CMP being unremarkable. Her magnesium level is within normal limits at 2.0. Her troponin is undetectably low. Her pro-BNP is within normal limits at 78. Her D-dimer is within normal limits at 0.33. Her coags are within normal limits. Her swab for the SARS-CoV-2 virus is negative. 02/14/21 22:17 Test results discussed with the patient and her . As above, today's work-up is completely unremarkable. She states that she feels like her symptoms may be coming back a little. I will order some Maalox, but I am reluctant to order another GI cocktail, due to the lidocaine. Going forward, I am recommend ing that she start taking generic famotidine, 1 tablet twice a day, then follow- up with Dr. Keys to see if her PPI should be switched to a different one. Departure - Departure Time of Disposition: 22:18 Disposition: Home, Self-Care 01 Condition: Good Clinical Impression: GERD (gastroesophageal reflux disease) - Discharge Information *PRESCRIPTION DRUG MONITORING PROGRAM REVIEWED*: Not Applicable *COPY OF PRESCRIPTION DRUG MONITORING REPORT IN PATIENT ТАТЬЯНА: Not Applicable Instructions: Gastroesophageal Reflux Disease, Adult, [id number] Referrals: Gilma Keys MD [Primary Care Provider] - Miki Goldstein MD [Ordering Only Provider] - Ana Herrera NP [Ordering Only Provider] - Forms: ED Department Discharge Additional Instructions: You were seen in the emergency room after developing pain felt across your entire anterior chest and back, and upper abdomen. Work-up in the ER included numerous blood tests, a swab for the SARS-CoV-2 virus, a chest x-ray, and an ECG. Your entire work-up was completely unremarkable. You have not suffered a heart attack. You do not have a blood clot in your lungs. You do not have pneumonia, or a collapsed lung. You are not suffering from congestive heart failure. You had significant improvement in your symptoms following a GI cocktail, strongly indicating that your symptoms are due to acid reflux, also known as GERD. We recommend that you purchase [id number] famotidine (Pepcid), and begin taking 1 tablet of famotidine twice a day. We recommend you follow-up with your PCP, Dr. Gilma Keys, to discuss the possibility of switching your current Nexium to a different PPI. You may also benefit from undergoing an EGD (scope of the stomach). If any other problems, please do not hesitate to return to the ER. Sepsis Event Note (ED) - Evaluation Sepsis Screening Result: No Definite Risk
[2021-02-14] MEDS ORDERED: Famotidine 20 MG/2 ML SDV IVPUSH STA (21:06)
[2021-02-14] MEDS ORDERED: Aluminum Hydroxide/Magnesium Hydroxide/Simethicone Susp 30 ML Cup PO ONE (22:17)
--- NOTE | 2021-02-15 06:39 | CR ---
Chest: Frontal view of the chest was obtained. Comparison: Prior chest x-ray of 03/20/17. Heart size and mediastinum are within normal limits. Lungs are clear with no acute parenchymal change. Bony structures show nothing acute. Impression: 1. Nothing acute is seen on frontal chest x-ray. Diagnostic code #1
== END 2021-02-14 22:38 | disposition home or self-care (01) ==
LOC: SUPCPDRO 20:10 → JD.ED 20:10
DX: K21.9 Gastro-esophageal reflux disease without esophagitis (principal); E78.00 Pure hypercholesterolemia, unspecified; Z79.899 Other long term (current) drug therapy; Z20.822 Contact with and (suspected) exposure to COVID-19
CPT/HCPCS: 36415; 71045; 80053; 83735; 83880; 84484; 85007; 85027; 85379; 85610; 85730; 93005; 96374; 99285; A9270; J3490; U0002